=== PATIENT | male | born 1990 | race Native Hawaiian/Other Pacific Islander ===

== ENCOUNTER 2018-11-24 12:57 | Emergency (ER) | payer OTHER ==
[~2018-11-24] VITALS: Ht 167.6 cm; Wt 81.6 kg
[2018-11-24 13:49] LABS: PLATELET COUNT 226 K/uL (142-355)
[2018-11-24 13:57] LABS: POTASSIUM 4.6 mmol/L (3.6-5.2)
[2018-11-24 14:31] LABS: PARTIAL THROMBOPLASTIN TIME 26.7 SECONDS (24.5-33.6)
[2018-11-24 15:00] VITALS: BP 129/92; TEMP 98.4
== END 2018-11-24 15:30 | disposition home or self-care (01) ==
LOC: ED 12:57
PROVIDERS: Hospitalist
DX: N39.0 Urinary tract infection, site not specified (principal); K40.90 Unilateral inguinal hernia, without obstruction or gangrene, not specified as recurrent
CPT/HCPCS: 80053; 81000; 85027; 85610; 85730; 87088; 96360; 96365; 96375; 99284; J0696; J1885; J2405

== ENCOUNTER 2018-11-25 18:33 | Emergency (ER) | payer OTHER ==
[~2018-11-25] VITALS: Ht 167.6 cm; Wt 81.6 kg
[2018-11-25 22:50] VITALS: BP 115/80; TEMP 98.6
== END 2018-11-25 22:50 | disposition home or self-care (01) ==
LOC: ED 18:33
DX: N23 Unspecified renal colic (principal); N20.0 Calculus of kidney
CPT/HCPCS: 81000; 87088; 96372; 99283; J1885